=== PATIENT | female | born 1960 | race Caucasian/White ===

== ENCOUNTER 2020-01-04 18:17 | Emergency (ER) | payer OTHER, SELFPAY ==
[2020-01-04 18:22] VITALS: BP 135/74; PULSE 95; RESP 18; O2SAT 100
--- NOTE | 2020-01-04 19:06 | DI.CT.S_ITS ---
PROCEDURE: CT FACIAL BONES WO CON INDICATIONS: Fall on nose TECHNIQUE: Noncontrast 2.5 mm thick axial images acquired from the mandible through the frontal sinuses, with coronal and sagittal reformatting. For radiation dose reduction, the following was used: automated exposure control, adjustment of mA and/or kV according to patient size. COMPARISON: None. FINDINGS: Image quality: Excellent. Bones and teeth: Nondisplaced left nasal bone fracture is noted. The nasal septum is intact. There is rightward nasal septum deviation. Orbital peguero are intact. Sinus peguero show no fracture or deformity. Visualized portions of the mandible demonstrate no fractures or subluxation. Zygomatic arches are intact. Pterygoid plates are intact. Visualized portions of the skull base and auditory canals are intact. Sinuses: Paranasal sinuses are aerated. There is a mucus retention cyst in the right maxillary sinus. Mastoid air cells are aerated. Soft tissues: Pre-nasal soft tissue swelling. No enlarged lymph nodes. No soft tissue lacerations or debris. Vascular: Visualized vascular structures appear normal in the absence of contrast. Bony vascular foramina and canals are intact. IMPRESSION: 1. Nondisplaced left nasal bone fracture. 2. A mucus retention cyst in the right maxillary sinus. Dictated by: Rena Galdamez M.D. on 01/04/2020 at 19:37 Approved by: Rena Galdamez M.D. on 01/04/2020 at 19:46
--- NOTE | 2020-01-04 19:14 | PC.NURSE ---
Patient is on vacation on [facility] and and tripped and fell while shopping and hit her nose. She is not on blood thinners.
--- NOTE | 2020-01-04 19:25 | ED_ITS ---
HPI - Fall <EDWIN Sorto - Last Filed: 01/04/20 21:54> General Chief Complaint: Fall Stated Complaint: Fell and Possibly Broke Nose Time Seen by Provider: 01/04/20 18:43 Source: patient Mode of arrival: Ambulatory History of Present Illness HPI Narrative: 59yo female presents to the emergency department for facial swelling and nasal pain after fall. Patient states she tripped while walking on [facility] and fell on her nose and left shoulder. She states her nose was slightly sore, she was seen at [facility] and was told to be evaluated in the emergency department for a facial CT. Patient denies any shoulder pain at this time, she states there is some swelling on her face but it has decreased. Patient denies any loss of consciousness, headache, vision changes, neck pain, chest pain, shortness of breath, dizziness, abdominal pain, nausea, vomiting, diarrhea, or any other concerns. Review of Systems <EDWIN Sorto - Last Filed: 01/04/20 21:54> Review of Systems Narrative: REVIEW OF SYSTEMS: GENERAL: Denies fever or chills. HENT: Reports nasal trauma, swelling, and bruising, see HPI. EYES: No loss of vision, double vision, eye pain, or irritation. CARDIOVASCULAR: No chest pain or syncope. RESPIRATORY: No shortness of breath or cough. GASTROINTESTINAL: No nausea, vomiting, diarrhea, or constipation. GENITOURINARY: No flank pain or dysuria. MUSCULOSKELETAL: No pain, weakness, or deformities. INTEGUMENTARY: No rash, lesions, or pruritus. NEURO: No numbness, tingling, memory loss, or confusion. PSYCH: No behavior or mood changes. Patient History <EDWIN Sorto - Last Filed: 01/04/20 21:54> Medical History No significant medical problems (Acute) Social History Smoking Status: Never smoker Smoking Status: Never smoker Exam <EDWIN Sorto - Last Filed: 01/04/20 21:54> Initial Vital Signs Initial Vital Signs: Vital Signs Pulse Rate 95 H 01/04/20 18:22 Respiratory Rate 18 01/04/20 18:22 Blood Pressure 135/74 01/04/20 18:22 Pulse Oximetry 100 01/04/20 18:22 PHYSICAL EXAMINATION: GENERAL: Well groomed, alert, and cooperative. Answers questions promptly and appropriately. Vital signs noted. HENT: Ecchymosis noted across nasal bridge, increased swelling to left side of nasal bone versus right. Small amount of ecchymosis noted under left orbital bone. No tenderness to palpation of orbital bones, maxillary bone, or mandible. No trauma to teeth. EYES: PERRLA, Conjunctiva pink, sclera white, no periorbital swelling. CHEST: Normal to inspection and without deformities. CARDIOVASCULAR: S1 and S2 sounds normal. Regular rate and rhythm, no murmurs, clicks, or bruits. No pedal edema. RESPIRATORY: Normal respiratory rate, trachea midline, airway patent. No stridor, nasal flaring or accessory muscle use. Lungs are clear in all jackson without wheeze, rhonchi, or crackles. GASTROINTESTINAL: Bowel sounds normoactive. Abdomen is soft and non-tender. No organomegaly. MUSCULOSKELETAL: Normal gait and coordination. Equal tone and mass bilaterally. EXTREMITIES: CMS intact. Moves all extremities. SKIN: Warm, dry, soft, appropriate color for ethnicity. No lesions, rashes, or wounds. NEURO: Alert and Oriented X 3. Good coordination. No ataxia, or sensory deficits, or cognitive issues. GCS 15. CN III-XII grossly intact. PSYCH: Appropriate affect and mood. <Stan Mora MD - Last Filed: 01/04/20 23:49> Initial Vital Signs Initial Vital Signs: Vital Signs Pulse Rate 95 H 01/04/20 18:22 Respiratory Rate 18 01/04/20 18:22 Blood Pressure 135/74 01/04/20 18:22 Pulse Oximetry 100 01/04/20 18:22 Course <EDWIN Sorto - Last Filed: 01/04/20 21:54> Orders Ordered: ED Orders 01/04/20 19:06 CT facial bones wo con Stat Vital Signs Vital signs: Vital Signs - 8 hr 01/04/20 18:22 Pulse Rate 95 H Respiratory Rate 18 Blood Pressure 135/74 Pulse Oximetry 100 <Stan Mora MD - Last Filed: 01/04/20 23:49> Orders Ordered: ED Orders 06/29/20 19:06 CT facial bones wo con Stat Vital Signs Vital signs: Vital Signs - 8 hr 01/04/20 18:22 Pulse Rate 95 H Respiratory Rate 18 Blood Pressure 135/74 Pulse Oximetry 100 MDM - Fall <EDWIN Sorto - Last Filed: 01/04/20 21:54> Medical Records Attestation: I reviewed the patient's medical records. Lab Data Attestation: I reviewed the patient's lab results. Imaging Data FACE CT: Radiologist's Impression: [address] [address] [address] Scan Report Signed Patient: Miguel Black#: [id number] : 2Acct:[id number] Age/Sex: 59 / FDate of Service: 01/04/20 Loc: ED Accession Number: [id number] Procedure: CT facial bones wo con Ordering Provider: Rosemary Blackman PROCEDURE: CT FACIAL BONES WO CON INDICATIONS: Fall on nose TECHNIQUE: Noncontrast 2.5 mm thick axial images acquired from the mandible through the frontal sinuses, with coronal and sagittal reformatting. For radiation dose reduction, the following was used: automated exposure control, adjustment of mA and/or kV according to patient size. COMPARISON: None. FINDINGS: Image quality: Excellent. Bones and teeth: Nondisplaced left nasal bone fracture is noted. The nasal septum is intact. There is rightward nasal septum deviation. Orbital peguero are intact. Sinus peguero show no fracture or deformity. Visualized portions of the mandible demonstrate no fractures or subluxation. Zygomatic arches are intact. Pterygoid plates are intact. Visualized portions of the skull base and auditory canals are intact. Sinuses: Paranasal sinuses are aerated. There is a mucus retention cyst in the right maxillary sinus. Mastoid air cells are aerated. Soft tissues: Pre-nasal soft tissue swelling. No enlarged lymph nodes. No soft tissue lacerations or debris. Vascular: Visualized vascular structures appear normal in the absence of contrast. Bony vascular foramina and canals are intact. IMPRESSION: 1. Nondisplaced left nasal bone fracture. 2. A mucus retention cyst in the right maxillary sinus. Dictated by: Rena Galdamez M.D. on 01/04/2020 at 19:37 Approved by: Rena Galdamze M.D. on 01/04/2020 at 19:46 MDM Narrative Medical decision making narrative: 59-year-old female presents to the emergency department for nasal trauma. CT shows nondisplaced nasal fracture and incidental cyst. Patient tolerating injury well without excessive pain. She was referred to ENT for follow-up. Return precautions given for new or worse symptoms. Patient agreed to plan of care verbalized understanding. Discharge Plan Departure Patient Disposition: Home Clinical Impression: Mucous retention cyst Fracture of nasal bone Qualifiers: Encounter type: initial encounter Fracture type: closed Qualified Code(s): S02.2XXA - Fracture of nasal bones, initial encounter for closed fracture Discharge Date/Time: 01/04/20 20:15 Activity Restrictions/Additional Instructions: Thank you for entrusting me with your care today. As discussed, your CT shows a nasal bone fracture and a mucous retention cyst was found incidentally. Please follow-up with ENT listed below, call them tomorrow to schedule an appointment. Apply ice to the area as needed for pain. Take Tylenol and ibuprofen for pain. Return emergency department for any new or worsening symptoms such as severe headache, uncontrollable vomiting, vision changes, chest pain, shortness of breath, or any other concerns. Referrals: Sergio Galvan MD [Physician] - April Gomez [Primary Care Provider] - <Stan Mora MD - Last Filed: 01/04/20 23:49> Cosign ED Attending Cosignature Attestation: I was immediately available in the depar tment for consultation. This documentation has been reviewed and I agree with assessment and plan. Supervised by Stan Mora MD
== END 2020-01-04 20:15 | disposition home or self-care (01) ==
PROVIDERS: Emergency Provider Nurse Practitioner; PCP Physician Assistant
DX: S02.2XXA Fracture of nasal bones, initial encounter for closed fracture (principal); J34.1 Cyst and mucocele of nose and nasal sinus; W19.XXXA Unspecified fall, initial encounter
CPT/HCPCS: 70486; 99281; 99284